=== PATIENT | female | born 1950 | race Asian ===

== ENCOUNTER 2016-10-02 09:50 | Emergency (ER) | payer OTHER ==
[~2016-10-02] VITALS: Ht 170.2 cm; Wt 79.5 kg
[2016-10-02] MEDS ORDERED: AMLO-512 PO (12:53)
[2016-10-02] MEDS ORDERED: OMEP20 PO (12:53)
[2016-10-02] MEDS ORDERED: ISOS20TA9 PO (12:53)
[2016-10-02] MEDS ORDERED: DABI75CA3 PO (12:53)
[2016-10-02] MEDS ORDERED: LOVA20 PO (12:53)
[2016-10-02] MEDS ORDERED: DIPH25 PO (12:53)
[2016-10-02] MEDS ORDERED: METO25 PO (12:53)
[2016-10-02 13:31] LABS: BASOPHILS % (AUTO) 0.3 % (0.0-2.0); EOSINOPHILS % (AUTO) 1.4 % (1.0-6.0); HEMATOCRIT 42.8 % (36-46); HEMOGLOBIN 13.5 g/dL (12.0-16.0); LYMPHOCYTES # (AUTO) 1.8 K/uL (1.0-4.8); LYMPHOCYTES % (AUTO) 22.3 % (22.0-44.0); MEAN CORPUSCULAR HEMOGLOBIN 27.2 pg (26.0-34.0); MEAN CORPUSCULAR HGB CONC 31.5 G/dL (31.0-37.0); MEAN CORPUSCULAR VOLUME 86 fL (80-100); MONOCYTES # (AUTO) 0.5 K/uL (0.1-1.0); MONOCYTES % (AUTO) 6.4 % (2.0-9.0); NEUTROPHILS # (AUTO) 5.7 K/uL (1.8-7.7); NEUTROPHILS % (AUTO) 69.6 % (40.0-70.0); PLATELET COUNT (AUTO) 192 K/uL (150-450); RED BLOOD CELL COUNT(AUTO) 4.95 MIL/uL (4.00-5.20); RED CELL DISTRIBUTION WIDTH 14.6 % (11.5-14.5); WHITE BLOOD COUNT (AUTO) 8.2 K/uL (4.5-11.0)
[2016-10-02 13:42] LABS: ANION GAP 8 mmol/L (8-16); CALCIUM, TOTAL 8.8 mg/dL (8.8-10.5); CARBON DIOXIDE 27 mmol/L (22-29); CHLORIDE 107 mmol/L (98-107); CREATININE 0.96 mg/dL (0.60-1.30); GLOMERULAR FILTR. RATE CALC 58 mL/min (>60); POTASSIUM 4.4 mmol/L (3.5-5.1); SODIUM SERUM 142 mmol/L (136-145); UREA NITROGEN, BLOOD 17 mg/dL (7-18)
[2016-10-02 13:48] LABS: B-TYPE NATRIURETIC PEPTIDE 265 pg/mL (0-100)
[2016-10-02 13:49] LABS: ALANINE AMINOTRANSFERASE 21 U/L (12-78); ALBUMIN 3.6 g/dL (3.4-5.0); ASPARTATE AMINOTRANSFERASE 23 U/L (15-37); BILIRUBIN,TOTAL 1.1 mg/dL (0.1-1.0); CREATINE KINASE, TOTAL 70 U/L (26-192); TOTAL PROTEIN, SERUM 7.4 g/dL (6.4-8.2)
[2016-10-02 15:03] VITALS: BP 125/82
== END 2016-10-02 15:05 | disposition home or self-care (01) ==
LOC: EMS 09:53
DX: R06.02 Shortness of breath (principal); G47.00 Insomnia, unspecified; I48.91 Unspecified atrial fibrillation; I10 Essential (primary) hypertension; E78.00 Pure hypercholesterolemia, unspecified
CPT/HCPCS: 93005; 99285

== ENCOUNTER 2021-10-01 14:31 | Emergency (ER) | payer MEDICARE, OTHER ==
[~2021-10-01] VITALS: Ht 170.2 cm; Wt 77.7 kg
[~2021-10-01 14:31] MED LIST: AMLO-258 PO; DABI75CA3 PO; DIPH25 PO; ISOS20TA9 PO; LOVA20TA73 PO; METO25 PO; OMEP20 PO
[2021-10-01] MEDS ORDERED: ACETAMINOPHEN 500 MG TABLET PO ONE (15:00)
[2021-10-01 15:11] VITALS: BP 135/75
[2021-10-01] MEDS ORDERED: HYDR-4723 PO (16:30)
== END 2021-10-01 16:54 | disposition home or self-care (01) ==
LOC: EMS 14:40
DX: S90.32XA Contusion of left foot, initial encounter (principal); I10 Essential (primary) hypertension; I48.91 Unspecified atrial fibrillation; E78.00 Pure hypercholesterolemia, unspecified; Z79.899 Other long term (current) drug therapy; W22.8XXA Striking against or struck by other objects, initial encounter; Y93.89 Activity, other specified; Y92.89 Other specified places as the place of occurrence of the external cause; Y99.8 Other external cause status
CPT/HCPCS: 99283